=== PATIENT | male | born 1960 | race Caucasian/White ===

== ENCOUNTER 2016-11-05 17:27 | Inpatient (IN) | payer SELFPAY ==
[~2016-11-05] VITALS: Ht 177.8 cm; Wt 79.9 kg
[2016-11-05] VITALS (8 sets, daily range): BP systolic 137–146; BP diastolic 78–93; PULSE 56–72; RESP 16–20; TEMP 97.6–98.2; O2SAT 95–98
[~2016-11-05 17:27] MED LIST: ATOR20TA42 PO; BLOOD PRESSURE PILL; IBUP800T23 PO; OXYC-360 PO
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
[2016-11-05] MEDS ORDERED: ATEN25TA PO (17:55)
[2016-11-05 17:58] LABS: AUTOMATED NEUTROPHIL # 5.5 TH/MM3 (1.8-7.7); BASOPHIL % 0.4 % (0.0-2.0); EOSINOPHIL % 0.6 % (0.0-4.0); HEMATOCRIT 42.3 % (39.0-51.0); HEMO FLAGS DIFF FINAL; LYMPHOCYTE # 1.8 TH/MM3 (1.0-4.8); MEAN CELL VOLUME 90.4 FL (80.0-100.0); MEAN CORPUSCULAR HEMOGLOBIN 31.6 PG (27.0-34.0); MONO % 10.7 % (0.0-8.0); NEUT % 66.3 % (16.0-70.0); PLATELET COUNT 243 TH/MM3 (150-450); RED BLOOD COUNT 4.68 MIL/MM3 (4.50-5.90); WHITE BLOOD COUNT 8.2 TH/MM3 (4.0-11.0)
[2016-11-05] MEDS ORDERED: SODIUM CHLORIDE 0.9% FLUSH 5 ML FLUSH IVF PRN ×3 (18:00→19:30)
[2016-11-05 18:06] LABS: POTASSIUM 4.2 MEQ/L (3.5-5.1)
[2016-11-05 18:09] LABS: BICARBONATE 26.6 MEQ/L (21.0-32.0)
[2016-11-05 18:12] LABS: APTT (PATIENT) 24.3 SEC (24.3-30.1)
--- NOTE | 2016-11-05 18:58 | RADHPO ---
EXAM DATE/TIME: 11/05/2016 18:34 [facility] COMPARISON: No previous studies available for comparison. INDICATIONS : Left facial numbness and left upper and left lower extremity weakness for four days. RADIATION DOSE: 57.12 CTDIvol (mGy) MEDICAL HISTORY : Hypertension. SURGICAL HISTORY : None. ENCOUNTER: Initial ACUITY: 1 day PAIN SCALE: 0/10 LOCATION: Bilateral head TECHNIQUE: Multiple contiguous axial images were obtained of the head. Using automated exposure control and adj ustment of the mA and/or kV according to patient size, radiation dose was kept as low as reasonably a chievable to obtain optimal diagnostic quality images. FINDINGS: CEREBRUM: The ventricles are normal for age. No evidence of midline shift, mass lesion, hemorrhage or acute in farction. No extra-axial fluid collections are seen. POSTERIOR FOSSA: The cerebellum and brainstem are intact. The 4th ventricle is midline. The cerebellopontine angle i s unremarkable. EXTRACRANIAL: The visualized portion of the orbits is intact. SKULL: The calvaria is intact. No evidence of skull fracture. CONCLUSION: Negative noncontrast CT brain. Shaan Card MD on November 05, 2016 at 18:56 Board Certified Radiologist. This report was verified electronically.
--- NOTE | 2016-11-05 19:21 | PD ---
Physical Exam Date Seen by Provider: Nov 05, 2016 Time Seen by Provider: 19:18 Narrative accepted in transfer of care from Dr Benavides GENERAL: Well developed well-nourished male in no acute distress no respiratory distress SKIN: Warm and dry. HEAD: Atraumatic. Normocephalic. EYES: Pupils equal and round. No scleral icterus. No injection or drainage. ENT: No nasal bleeding or discharge. Mucous membranes pink and moist. NECK: Trachea midline. No JVD. CARDIOVASCULAR: Regular rate and rhythm. RESPIRATORY: No accessory muscle use. Clear to auscultation. Breath sounds equal bilaterally. GASTROINTESTINAL: Abdomen soft, non-tender, nondistended. Hepatic and splenic margins not palpable. MUSCULOSKELETAL: Extremities without clubbing, cyanosis, or edema. No obvious deformities. NEUROLOGICAL: Awake and alert. No obvious cranial nerve deficits. Motor grossly within normal limits. Five out of 5 muscle strength in the arms and legs. No pronator drift. Minimal limits ataxia affecting the left lower extremity. Sensory exam slightly decreased right UE/LE and reports minimally left face. Normal speech. PSYCHIATRIC: Appropriate mood and affect; insight and judgment normal. Data Data Last Documented VS Vital Signs Date Time Temp Pulse Resp B/P Pulse Ox O2 Delivery O2 Flow Rate FiO2 11/05/16 18:11 20 11/05/16 17:30 98.2 72 137/93 98 Orders Prothrombin Time / Inr (Pt) (11/05/16 17:47) Act Partial Throm Time (Ptt) (11/05/16 17:47) Complete Blood Count With Diff (11/05/16 17:47) Basic Metabolic Panel (Bmp) (11/05/16 17:47) Ct Brain W/O Iv Contrast(Rout) (11/05/16 17:47) Ecg Monitoring (11/05/16 17:47) Iv Access Insert/Monitor (11/05/16 17:47) Oximetry (11/05/16 17:47) Sodium Chloride 0.9% Flush (Ns Flush) (11/05/16 18:00) Labs Laboratory Tests Test 11/05/16 17:50 White Blood Count 8.2 TH/MM3 Red Blood Count 4.68 MIL/MM3 Hemoglobin 14.8 GM/DL Hematocrit 42.3 % Mean Corpuscular Volume 90.4 FL Mean Corpuscular Hemoglobin 31.6 PG Mean Corpuscular Hemoglobin 35.0 % Concent Red Cell Distribution Width 13.0 % Platelet Count 243 TH/MM3 Mean Platelet Volume 8.1 FL Neutrophils (%) (Auto) 66.3 % Lymphocytes (%) (Auto) 22.0 % Monocytes (%) (Auto) 10.7 % Eosinophils (%) (Auto) 0.6 % Basophils (%) (Auto) 0.4 % Neutrophils # (Auto) 5.5 TH/MM3 Lymphocytes # (Auto) 1.8 TH/MM3 Monocytes # (Auto) 0.9 TH/MM3 Eosinophils # (Auto) 0.0 TH/MM3 Basophils # (Auto) 0.0 TH/MM3 CBC Comment DIFF FINAL Differential Comment Prothrombin Time 11.0 SEC Prothromb Time International 1.0 RATIO Ratio Activated Partial 24.3 SEC Thromboplast Time Sodium Level 139 MEQ/L Potassium Level 4.2 MEQ/L Chloride Level 104 MEQ/L Carbon Dioxide Level 26.6 MEQ/L Anion Gap 8 MEQ/L Blood Urea Nitrogen 17 MG/DL Creatinine 1.20 MG/DL Estimat Glomerular Filtration 62 ML/MIN Rate Random Glucose 91 MG/DL Calcium Level 8.5 MG/DL [facility] Medical Record Reviewed: Yes Supervised Visit with SIXTO: No Interpretation(s) Last Impressions Head CT 11/05/16 3477 Signed Impressions: Service Date/Time: Saturday, November 05, 2016 18:34 - CONCLUSION: Negative noncontrast CT brain. Shaan Card MD Differential Diagnosis please refer to Dr Benavides's dictation Narrative Course accepted in transfer of care from Dr Benavides for follow up of pending CT brain w /o and patient disposition Venus Ho MD Nov 05, 2016 19:21
[2016-11-05] MEDS ORDERED: GLUCAGON 1 MG/ML VIAL IM/SQ PRN (19:30)
[2016-11-05] MEDS ORDERED: ENALAPRILAT 1.25 MG/ML VIAL IV PRN (19:30)
[2016-11-05] MEDS ORDERED: ASPIRIN 325 MG TAB PO ONE (19:30)
[2016-11-05] MEDS ORDERED: DEXTROSE 50% IN WATER 50 ML VIAL(D50) IV PUSH PRN (19:30)
[2016-11-05] MEDS ORDERED: ACETAMINOPHEN 325 MG TAB PO ONE (20:00)
[2016-11-05] MEDS: SODIUM CHLOR 0.9% 1000 ML INJ 1,000 ML IV SCH (20:09)
[2016-11-05] MEDS: SODIUM CHLORIDE 0.9% FLUSH 5 ML FLUSH IVF SCH (20:52)
[2016-11-05] MEDS: INSULIN ASPART SUPPLEMENTAL SCALE SQ SCH (20:52)
[2016-11-05] MEDS ORDERED: SODIUM CHLORIDE 0.9% FLUSH 5 ML FLUSH IVF SCH (21:00)
[2016-11-06] VITALS (9 sets, daily range): BP systolic 126–138; BP diastolic 80–86; PULSE 51–71; RESP 16–20; TEMP 96.5–98.1; O2SAT 95–98
[2016-11-06] MEDS: INSULIN ASPART SUPPLEMENTAL SCALE SQ SCH ×4 (06:29→20:33)
[2016-11-06] MEDS: SODIUM CHLORIDE 0.9% FLUSH 5 ML FLUSH IVF SCH ×2 (08:55→20:32)
[2016-11-06] MEDS: SODIUM CHLOR 0.9% 1000 ML INJ 1,000 ML IV SCH ×2 (08:55→23:48)
[2016-11-06] MEDS ORDERED: ASPIRIN 81 MG CHEW TAB CHEW SCH (09:00)
[2016-11-06] MEDS ORDERED: ASPIRIN 325 MG TAB PO SCH (09:00)
[2016-11-06 10:05] LABS: LDL CHOLESTEROL 173 MG/DL (0-99)
[2016-11-06] MEDS ORDERED: ACETAMINOPHEN 650 MG SUPP RECTAL PRN (11:00)
[2016-11-06] MEDS ORDERED: ACETAMINOPHEN 80 MG CHEWABLE TAB CHEW ONE (11:00)
--- NOTE | 2016-11-06 11:19 | RADHPO ---
EXAM DATE/TIME: 11/06/2016 10:39 [facility] COMPARISON: CT BRAIN W/O CONTRAST, November 05, 2016, 18:34. INDICATIONS : Dizziness. Ataxia with falling. MEDICAL HISTORY : Hypertension. SURGICAL HISTORY : Inguinal hernia repair. [facility] ENCOUNTER: Initial ACUITY: 1 day PAIN SCORE: 0/10 LOCATION: cranial TECHNIQUE: Multiplanar, multisequence MRI of the brain was performed without contrast. FINDINGS: CEREBRUM: The ventricles are normal for age. No evidence of midline shift, mass lesion, hemorrhage or acute in farction. No extraaxial fluid collections are seen. The pituitary gland and suprasellar cistern are normal in configuration. WHITE MATTER: No significant signal abnormalities are seen in the white matter. POSTERIOR FOSSA: The cerebellum and brainstem are intact. There is a questionable tiny area of increased signal along the left brain stem seen on the very first image of the diffusion weighted sequence and FLAIR sequenc e. This could be artifact.. The 4th ventricle is midline. The cerebellopontine angle is unremarkable. The cerebellar tonsils are normal in position. DIFFUSION IMAGING: Questionable tiny area of increased signal along the left brain stem seen on the first image. This co uld be an artifact. Otherwise, the diffusion images are unremarkable.EXTRACRANIAL: The visualized portions of the orbits are unremarkable. Chronic bilateral maxillary sinus disease. CONCLUSION: 1. Questionable tiny area of increased signal along the left lateral brain stem on the very first juan ge of the diffusion and flair weighted sequences. This is most likely an artifact. However, I would c orrelate with patient's clinical and physical exam if this finding suggest a tiny brainstem infarct. 2. Chronic bilateral maxillary sinus disease. 3. Otherwise, unremarkable examination. Paco Lewis MD on November 06, 2016 at 11:11 Board Certified Radiologist. This report was verified electronically.
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
[2016-11-06 11:56] LABS: HEMOGLOBIN A1a 0.8 %; HEMOGLOBIN A1b 1.5 %; HEMOGLOBIN Ao 86.5 %; HEMOGLOBIN F 0.3 %; HEMOGLOBIN LA1C 1.8 %; HEMOGLOBIN P3 3.5 %
--- NOTE | 2016-11-06 12:24 | EKG ---
Date Performed: 11/05/2016 Time Performed: 17:37:34 PTAGE: 56 years EKG: Sinus rhythm . Poor R wave progression - probable normal variant Borderline ECG NO PREVIOUS TRACING DOCTOR: Noel Gu Interpretating Date/Time 11/06/2016 12:23:56
[2016-11-06] MEDS ORDERED: ACETAMINOPHEN 325 MG TAB PO PRN (14:00)
[2016-11-06] MEDS: ACETAMINOPHEN/HYDROcodone 325 MG/7.5 MG TAB PO PRN ×2 (14:26→20:32)
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
--- NOTE | 2016-11-06 17:54 | MB ---
cc: MARIO ALBERTO WRIGHT M.D. DATE OF CONSULTATION 11/06/2016 HISTORY Micheal Godwin is a 56-year-old seen in neurological consultation. About a week to 10 days ago he felt that his head and was not quite right. He is very vague about this but some four days ago he had some head pain on the left side and next morning he woke up with difficulty walking and describes a left-sided numbness, weakness, he could not walk. He stayed in bed most of the time but decided to come in yesterday. His symptoms persist. He has been having hiccups as well. History of hypertension, apparent hyperlipidemia. He takes atenolol. No history of stroke, seizures, TIA. NEUROLOGICAL EXAMINATION Exam shows an alert pleasant man. He is oriented. Mentation is normal. Ocular movements are full as well as visual flores. No facial weakness. Tongue and palate moves well. Speech was normal. There is some questionable difficulty with left hand coordination. I did not ambulate him but he describes an inability to ambulate without risk. His reflexes were 1+, plantar responses flexor. Position sense preserved. IMAGING MRI brain was reviewed. There are some areas of possible subacute stroke, left lower brain stem. MRA head normal. LABORATORY DATA Chemistry normal. LDL is 173. CBC is normal. 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 The MRI is a difficult call but his symptomatology is in line with this. EKG is sinus rhythm. He was started on aspirin and statin. He was not taking any of these meds in the past except for atenolol. I will add MRA neck. The goal will be to reach an LDL on the patient below 60. If MRA neck is showing no significant abnormalities, then continue for to rehab and outpatient office followup in a couple of weeks. Thank you for asking us to assist in his care. MD RADHA Vargas/EDER /4:54 PM /5:43 PM
--- NOTE | 2016-11-06 19:49 | RADHPO ---
EXAM DATE/TIME: 11/06/2016 19:19 [facility] COMPARISON: US CAROTID ARTERIES, November 06, 2016, 16:42. INDICATIONS : Dizziness. CONTRAST: 20 cc Omniscan (gadodiamide) IV MEDICAL HISTORY : Hypertension. SURGICAL HISTORY : Inguinal hernia repair. ENCOUNTER: Initial ACUITY: 1 day PAIN SCORE: 0/10 LOCATION: cranial Percent stenosis is calculated using the diameter of the stenotic region over the diameter of the nor mal distal internal carotid artery. TECHNIQUE: Bolus infused MRA of the extracranial circulation was performed using a neurovascular coil. Post pro cessing was performed including rotationg subvolume maximum intensity projections of each carotid art alfredo, rotating full volume maximum intensity projections of both carotid arteries, sagittal and laureano l sliding thin slab reformations of each carotid artery, and left oblique sliding thin slab reformati on through the aortic arch to include the origin of the arch branch vessels. FINDINGS: AORTIC ARCH: There is a three vessel origin of the great vessels from the aorta. No evidence of ostial narrowing. RIGHT CAROTID: The common carotid artery is intact. The carotid bulb has a normal configuration without ulceration or narrowing. The internal carotid artery lumen is smooth without stenosis. The external carotid ar alon is intact. LEFT CAROTID: The common carotid artery is intact. The carotid bulb has a normal configuration without ulceration or narrowing. The internal carotid artery lumen is smooth without stenosis. The external carotid ar alon is intact. VERTEBRALS: The vertebral arteries have a symmetric diameter. There are bilateral undulating impressions upon th e mid vertebral arteries bilaterally, probably due to uncovertebral joint hypertrophy in the cervical spine.. CONCLUSION: Negative MRA of the carotids. Shaan Card MD on November 06, 2016 at 19:45 Board Certified Radiologist. This report was verified electronically.
[2016-11-06] MEDS ORDERED: GADODIAMIDE PF 287 MG/ML 20 ML VIAL (for RAD MRI) IV ONE (20:02)
[2016-11-07] VITALS (8 sets, daily range): BP systolic 131–157; BP diastolic 83–98; PULSE 51–61; RESP 16–18; TEMP 95.7–98.1; O2SAT 94–100
[2016-11-07] MEDS: ACETAMINOPHEN/HYDROcodone 325 MG/7.5 MG TAB PO PRN ×4 (00:56→23:56)
[2016-11-07] MEDS: INSULIN ASPART SUPPLEMENTAL SCALE SQ SCH ×2 (06:03→11:00)
[2016-11-07] MEDS: SODIUM CHLORIDE 0.9% FLUSH 5 ML FLUSH IVF SCH ×2 (09:00→20:08)
[2016-11-07] MEDS: PRAVASTATIN SOD 20 MG TAB PO SCH (10:11)
[2016-11-07] MEDS: ASPIRIN EC 325 MG TABEC PO SCH (10:11)
--- NOTE | 2016-11-07 11:51 | HHI.PR ---
Subjective Remarks Patient seen today in follow-up for stroke. Patient still quite unsteady. Discharge plans discussed with patient and with case management. Patient will benefit from rehabilitation placement Objective Vitals Vital Signs Date Time Temp Pulse Resp B/P Pulse Ox O2 Delivery O2 Flow Rate FiO2 11/07/16 08:57 97.9 61 17 140/85 97 11/07/16 07:03 15 11/07/16 04:00 96.6 51 18 157/94 94 11/07/16 00:00 97.0 54 18 147/86 99 11/06/16 20:05 62 11/06/16 20:00 97.7 64 18 127/86 95 11/06/16 16:00 98.1 71 20 138/84 98 11/06/16 12:10 54 11/06/16 12:00 98.0 52 20 137/86 98 I/O 11/06/16 11/06/16 11/06/16 11/07/16 11/07/16 11/07/16 07:00 15:00 23:00 07:00 15:00 23:00 Intake Total 560 ml 480 ml 1397 ml 774 ml Output Total 350 ml 840 ml Balance 210 ml 480 ml 1397 ml -66 ml Intake Oral 480 ml 240 ml IV Total 560 ml 1397 ml 534 ml Output Urine Total 350 ml 840 ml # Voids 1 # Bowel Movements 0 Result Diagram: 11/05/16 1750 11/05/16 175 Objective Remarks GENERAL: This is a well-nourished, well-developed patient, in no apparent distress. CARDIOVASCULAR: Regular rate and rhythm without murmurs, gallops, or rubs. RESPIRATORY: Clear to auscultation. Breath sounds equal bilaterally. No wheezes , rales, or rhonchi. GASTROINTESTINAL: Abdomen soft, non-tender, nondistended. Normal active bowel sounds MUSCULOSKELETAL: Extremities without clubbing, cyanosis, or edema. NEURO: Alert & Oriented x4 to person, place, time, situation. Moves all ext x4 but has some left-sided preference and ataxia A/P Problem List: (1) CVA (cerebral vascular accident) ICD Code: I63.9 Status: Acute Plan: Images show no arterial blockages Follow-up echo Continue statin and continue aspirin rehabilitation efforts Will continue risk modification Neuro consult appreciated d/c Accucheck, IVF Assessment and Plan TEDs SCDs Discharge Planning Patient will benefit from rehabilitation placement We'll evaluate [facility] bed at inpatient rehabilitation Yana Brandon MD Nov 07, 2016 11:51
--- NOTE | 2016-11-07 14:51 | EC ---
Study Study Date:11/07/2016 STUDY CONCLUSIONS SUMMARY LEFT VENTRICLE: The cavity size was normal. Wall thickness was normal. Systolic function was normal. The estimated ejection fraction was in the range of 55% to 60%. Wall motion was normal; there were no regional wall motion abnormalities. If LV function is below 40, please consider prescribing an ACEI or ARB or document rationale for non-use. PROCEDURE DATA STUDY STATUS: Elective. Procedure: Transthoracic echocardiography. Image quality was good. Scanning was performed from the parasternal, apical, and subcostal acoustic windows. Study completion: The patient tolerated the procedure well. Transthoracic echocardiography. M-mode, complete 2D, complete spectral Doppler, and color Doppler. Patient status: Inpatient. CARDIAC ANATOMY LEFT VENTRICLE: The cavity size was normal. Wall thickness was normal. Systolic function was normal. The estimated ejection fraction was in the range of 55% to 60%. Wall motion was normal; there were no regional wall motion abnormalities. AORTIC VALVE: Trileaflet; normal thickness leaflets. Doppler: Transvalvular velocity was within the normal range. There was no stenosis. No regurgitation. AORTA: Aortic root: The aortic root was normal in size. MITRAL VALVE: Structurally normal valve. Doppler: Transvalvular velocity was within the normal range. There was no evidence for stenosis. Trace regurgitation. LEFT ATRIUM: The atrium was normal in size. RIGHT VENTRICLE: The cavity size was normal. Wall thickness was normal. PULMONIC VALVE: Doppler: Transvalvular velocity was within the normal range. There was no evidence for stenosis. No regurgitation. TRICUSPID VALVE: Structurally normal valve. Doppler: Transvalvular velocity was within the normal range. Trace regurgitation. PULMONARY ARTERY: The main pulmonary artery was normal-sized. Systolic pressure was within the normal range. RIGHT ATRIUM: The atrium was normal in size. PERICARDIUM: There was no pericardial effusion. SYSTEMIC VEINS: Inferior vena cava: The vessel was normal in size. BASIC MEASUREMENTS ADULT NORMAL Left ventricle LV internal dimension, ED, chordal level, *34.9 mm 43-52 PLAX LV internal dimension, ES, chordal level, 25.3 mm 23-38 PLAX Fractional shortening, chordal level, PLAX *28 % >29 LV posterior wall thickness, ED 10.7 mm IVS/LVPW ratio, ED 1.19 <1.3 Ventricular septum Septal thickness, ED 12.7 mm Aortic valve Leaflet separation 19 mm 15-26 Right ventricle RV internal dimension, ED, PLAX 23.4 mm 19-38 BASIC MEASUREMENTS ADULT NORMAL Aortic valve Leaflet separation 19 mm 15-26 Aorta Root diameter, ED 28 mm 20-37 Left atrium Anterior-posterior dimension, ES 34 mm 19-40 LA/aortic root ratio 1.21 LEGEND: Mean values are shown as u=mean value. Asterisk (*) zarco values outside specified normal range. Prepared and signed by Fred Monte [id number]
[2016-11-07] MEDS: chlorproMAZINE HCL 25 MG TAB PO PRN ×2 (18:26→23:56)
[2016-11-08 08:00] VITALS: BP 150/81; PULSE 58; RESP 18; TEMP 97.2; O2SAT 96
[2016-11-08] MEDS: ASPIRIN EC 325 MG TABEC PO SCH (08:23)
[2016-11-08] MEDS: PRAVASTATIN SOD 20 MG TAB PO SCH (08:23)
[2016-11-08] MEDS: SODIUM CHLORIDE 0.9% FLUSH 5 ML FLUSH IVF SCH ×2 (08:24→20:54)
[2016-11-08] MEDS ORDERED: BISACODYL EC 5 MG TABEC PO ONE (10:45)
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
[2016-11-08 12:00] VITALS: BP 137/86; PULSE 59; RESP 18; TEMP 97; O2SAT 99
[2016-11-08 12:00] LABS: CHLORIDE 104 MEQ/L (98-107); POTASSIUM 3.7 MEQ/L (3.5-5.1); SODIUM (NA) 141 MEQ/L (136-145)
[2016-11-08 12:05] LABS: AMYLASE 48 U/L (25-115); ANION GAP 8 MEQ/L (5-15); BICARBONATE 29.4 MEQ/L (21.0-32.0); BLOOD UREA NITROGEN 15 MG/DL (7-18)
[2016-11-08 12:07] LABS: ALT (GPT) 38 U/L (12-78); AST (GOT) 21 U/L (15-37); GLOMERULAR FILTRATION RATE 90 ML/MIN (>89)
[2016-11-08 12:09] LABS: TOTAL BILIRUBIN ADULT 1.2 MG/DL (0.2-1.0)
[2016-11-08 12:10] LABS: ALKALINE PHOSPHATASE 51 U/L (45-117)
--- NOTE | 2016-11-08 13:20 | RADHPO ---
EXAM DATE/TIME: 11/08/2016 13:02 [facility] COMPARISON: No previous studies available for comparison. INDICATIONS : Nausea. MEDICAL HISTORY : Hypertension. Stroke. SURGICAL HISTORY : Inguinal hernia repair. ENCOUNTER: Subsequent ACUITY: 4 - 6 days PAIN SCORE: 2/10 LOCATION: Abdomen, upper quadrant. FINDINGS: Supine view of the abdomen was performed. The abdominal bowel gas pattern is normal. No definite ca lcifications overlying the kidneys.. The osseous structures are unremarkable. CONCLUSION: Benign abdomen. Paco Lewis MD on November 08, 2016 at 13:18 Board Certified Radiologist. This report was verified electronically.
[2016-11-08] MEDS: chlorproMAZINE HCL 25 MG TAB PO PRN (15:29)
[2016-11-08] MEDS: ACETAMINOPHEN/HYDROcodone 325 MG/7.5 MG TAB PO PRN (15:29)
[2016-11-08] MEDS: ATENOLOL 25 MG TAB PO SCH (15:30)
[2016-11-08] MEDS: POLYETHYLENE GLYCOL 17 GM PKG PO SCH (15:30)
[2016-11-08] MEDS: ENOXAPARIN SODIUM 40 MG/0.4 ML SYRINGE SQ SCH (15:32)
[2016-11-08 16:00] VITALS: BP 138/89; PULSE 71; RESP 18; TEMP 97.8; O2SAT 98
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
[2016-11-08 20:00] VITALS: BP 113/76; PULSE 67; RESP 18; TEMP 96.6; O2SAT 98
[2016-11-09] VITALS (7 sets, daily range): BP systolic 106–146; BP diastolic 70–83; PULSE 54–85; RESP 15–20; TEMP 96.1–97.9; O2SAT 95–98
[2016-11-09] MEDS ORDERED: PROPOFOL 200 MG/20 ML AMP IV ONE (07:43)
[2016-11-09] MEDS: PRAVASTATIN SOD 20 MG TAB PO SCH (08:51)
[2016-11-09] MEDS: chlorproMAZINE HCL 25 MG TAB PO PRN (08:51)
[2016-11-09] MEDS: ASPIRIN EC 325 MG TABEC PO SCH (08:51)
[2016-11-09] MEDS: ATENOLOL 25 MG TAB PO SCH (08:52)
[2016-11-09] MEDS: PANTOPRAZOLE SOD 40 MG DELAYED RELEASE TAB PO SCH (08:52)
[2016-11-09] MEDS: POLYETHYLENE GLYCOL 17 GM PKG PO SCH (08:56)
[2016-11-09] MEDS: SODIUM CHLORIDE 0.9% FLUSH 5 ML FLUSH IVF SCH ×2 (09:00→21:00)
[2016-11-09] MEDS: ENOXAPARIN SODIUM 40 MG/0.4 ML SYRINGE SQ SCH (09:08)
--- NOTE | 2016-11-09 16:01 | HHI.GIFU ---
Subjective Remarks feels ok, still have nausea, and not able to belch Objective Vitals I&O Vital Signs Date Time Temp Pulse Resp B/P Pulse Ox O2 Delivery O2 Flow Rate FiO2 11/09/16 12:00 96.5 61 18 106/74 96 11/09/16 08:25 113/72 11/09/16 08:15 60 16 117/72 96 11/09/16 08:05 109/70 11/09/16 06:55 97.9 60 15 125/75 98 11/09/16 06:10 96.8 60 16 125/75 98 11/09/16 00:00 97.0 61 20 120/83 98 11/08/16 20:00 96.6 67 18 113/76 98 11/08/16 16:00 97.8 71 18 138/89 98 I/O 11/08/16 11/08/16 11/08/16 11/09/16 11/09/16 11/09/16 07:00 15:00 23:00 07:00 15:00 23:00 Intake Total 480 ml 990 ml 480 ml 0 ml 300 ml Output Total 200 ml 850 ml Balance 280 ml 140 ml 480 ml 0 ml 300 ml Intake Oral 480 ml 990 ml 480 ml IV Total 0 ml 0 ml Other 300 ml Output Urine Total 200 ml 850 ml # Voids 2 1 # Bowel Movements 0 0 2 0 Physical Exam HEENT: Pupils round and reactive to light; normocephalic; atraumatic; no jaundice. Throat is clear. NECK: Neck is supple, no JVD, no lymphadenopathy. CHEST: Chest is clear to auscultation and percussion. CARDIAC: Regular rate and rhythm with no murmur gallop or rubs. ABDOMEN: Soft, nondistended, nontender; no hepatosplenomegaly; bowel sounds are present in all four quadrants. EXTREMITIES: No clubbing, cyanosis, or edema. SKIN: Normal; no rash; no jaundice. STEMMING MACHINE OPERATOR: No focal deficits; alert and oriented times three. Assessment and Plan Assessment: (1) Hiccups Plan: Has persistent hiccups since 11/05/16 No relief with Thorazine (2) Nausea Plan: continue anti-emetics PRN (3) CVA (cerebral vascular accident) Plan: Followed by neurology and hospitalist Plan This is a 56 year old male admitted with an acute CVA has persistent hiccups and nausea, EGD showed anatomy c/w fundoplication, s/p dilation size 18 mm and Bx from antrum to R/O H pylori, otherwise normal exam Plan -ENOC -Supportive care Lev Sheehan MD Nov 09, 2016 16:01
--- NOTE | 2016-11-09 16:26 | HHI.PR ---
Subjective Remarks Patient still has 6 cups but he feels that his strength is improving. Patient was seen ambulating independently around his room with a walker. Objective Vitals Vital Signs Date Time Temp Pulse Resp B/P Pulse Ox O2 Delivery O2 Flow Rate FiO2 11/09/16 16:00 97.7 85 17 110/70 95 11/09/16 12:00 96.5 61 18 106/74 96 11/09/16 08:25 113/72 11/09/16 08:15 60 16 117/72 96 11/09/16 08:05 109/70 11/09/16 06:55 97.9 60 15 125/75 98 11/09/16 06:10 96.8 60 16 125/75 98 11/09/16 00:00 97.0 61 20 120/83 98 11/08/16 20:00 96.6 67 18 113/76 98 I/O 11/08/16 11/08/16 11/08/16 11/09/16 11/09/16 11/09/16 06:59 14:59 22:59 06:59 14:59 22:59 Intake Total 480 ml 990 ml 480 ml 0 ml 300 ml Output Total 200 ml 850 ml Balance 280 ml 140 ml 480 ml 0 ml 300 ml Intake Oral 480 ml 990 ml 480 ml IV Total 0 ml 0 ml Other 300 ml Output Urine Total 200 ml 850 ml # Voids 2 1 # Bowel Movements 0 0 2 0 Result Diagram: 11/05/16 1750 11/08/16 1140 Objective Remarks GENERAL: Well-nourished, well-developed patient. SKIN: Warm and dry. HEAD: Normocephalic. EYES: No scleral icterus. No injection or drainage. NECK: Supple, trachea midline. No JVD or lymphadenopathy. CARDIOVASCULAR: Regular rate and rhythm without murmurs, gallops, or rubs. RESPIRATORY: Breath sounds equal bilaterally. No accessory muscle use. GASTROINTESTINAL: Abdomen soft, non-tender, nondistended. EXTREMITIES: No cyanosis, or edema. NEUROLOGICAL: Awake, alert, and oriented x 3. Non-focal. Normal speech. Gait steady with walker. A/P Problem List: (1) CVA (cerebral vascular accident) ICD Code: I63.9 Status: Acute (2) Hiccups ICD Code: R06.6 Status: Acute (3) Nausea ICD Code: R11.0 Status: Acute (4) HTN (hypertension) ICD Code: I10 Status: Acute Assessment and Plan (1) CVA (cerebral vascular accident)- Left lateral Brainstem; strong family history with personal risk factors of hyperlipidemia and HTN Echo wnl, neck MRA OK Continue statin and continue aspirin Neurologically much improved and ambulating independently with his walker Stable for outpatient PT at this time Neuro consult appreciated (2) Hiccups Plan: Persistent since 11/05, no improvement with Thorazine may be due to CVA; versus gastritis Status post EGD today - showing gastritis continue Protonix appreciate GI eval (3) Nausea -Improved. (4) HTN (hypertension) -Continue atenolol atenolol Discharge Planning Plan for discharge home tomorrow with walker and outpatient physical therapy/OT/ Edda Casillas MD Nov 09, 2016 16:26
[2016-11-09] MEDS ORDERED: WALKER GLIDE WH1 MI1 (16:28)
[2016-11-09] MEDS ORDERED: Aspirin Ec PO (16:31)
[2016-11-09] MEDS ORDERED: PANT40TA3 PO (16:31)
[2016-11-09] MEDS ORDERED: PRAV20TA PO (16:31)
[2016-11-09] MEDS ORDERED: CODEINE SULFATE 15 MG TAB PO ONE (23:45)
[2016-11-09] MEDS ORDERED: CODEINE SULFATE 30 MG TAB PO ONE (23:45)
[2016-11-10] VITALS: BP 118/88; PULSE 64; RESP 18; TEMP 97.1; O2SAT 98
[2016-11-10 08:00] VITALS: BP 120/78; PULSE 63; RESP 20; TEMP 98.4; O2SAT 98
[2016-11-10] MEDS: ENOXAPARIN SODIUM 40 MG/0.4 ML SYRINGE SQ SCH (08:37)
[2016-11-10] MEDS: POLYETHYLENE GLYCOL 17 GM PKG PO SCH (08:38)
[2016-11-10] MEDS: ASPIRIN EC 325 MG TABEC PO SCH (08:38)
[2016-11-10] MEDS: PRAVASTATIN SOD 20 MG TAB PO SCH (08:38)
[2016-11-10] MEDS: PANTOPRAZOLE SOD 40 MG DELAYED RELEASE TAB PO SCH (08:38)
[2016-11-10] MEDS: SODIUM CHLORIDE 0.9% FLUSH 5 ML FLUSH IVF SCH (08:38)
[2016-11-10] MEDS: ATENOLOL 25 MG TAB PO SCH (08:38)
--- NOTE | 2016-11-10 09:48 | HHI.DS ---
Discharge Summary Admission Date Nov 05, 2016 at 19:26 Discharge Date: Nov 10, 2016 Admitting Diagnosis CVA (1) CVA (cerebral vascular accident) ICD Code: I63.9 (2) Hiccups ICD Code: R06.6 (3) Nausea ICD Code: R11.0 (4) HTN (hypertension) ICD Code: I10 Procedures EGD Brief History - From Admission Patient is a 56-year-old gentleman who comes emergency room 4 days after acute onset of left arm and left leg weakness and numbness left side of his face. Patient has difficulty ambulating and says that he is leaning to the left. He tends to be quite loquacious and has trouble processing some information although follows commands without difficulty. Patient has any trauma or fall. He's never had a stroke and is only medical history of hypertension. He admits his family history includes stroke. On arrival patient's blood pressure was within normal limits. He did have images done of his head which show questionable tiny left lateral brainstem signal concerning for possible stroke versus artifact. The patient at this time has been admitted for evaluation treatment of this neurological issue. CBC/BMP: 11/08/16 1140 Significant Findings Laboratory Tests Test 11/08/16 11:40 Total Bilirubin 1.2 MG/DL (0.2-1.0) Imaging Last Impressions Abdomen X-Ray 11/08/16 0000 Signed Impressions: Service Date/Time: Tuesday, November 08, 2016 13:02 - CONCLUSION: Benign abdomen. Paco Lewis MD Neck Magnetic Resonance Angiography 11/06/16 0000 Signed Impressions: Service Date/Time: Sunday, November 06, 2016 19:19 - CONCLUSION: Negative MRA of the carotids. Shaan Card MD Head Magnetic Resonance Angiography 11/06/16 0000 Signed Impressions: Service Date/Time: Sunday, November 06, 2016 10:39 - CONCLUSION: Normal examination for a patient of this age. Paco Lewis MD Carotid Artery Ultrasound 11/06/16 0000 Signed Impressions: Service Date/Time: Sunday, November 06, 2016 16:42 - CONCLUSION: Normal hemodynamic profile both carotids. Shaan Card MD Brain MRI 11/06/16 0000 Signed Impressions: Service Date/Time: Sunday, November 06, 2016 10:39 - CONCLUSION: 1. Questionable tiny area of increased signal along the left lateral brain stem on the very first image of the diffusion and flair weighted sequences. This is most likely an artifact. However, I would correlate with patient's clinical and physical exam if this finding suggest a tiny brainstem infarct. 2. Chronic bilateral maxillary sinus disease. 3. Otherwise, unremarkable examination. Paco Lewis MD Head CT 11/05/16 1747 Signed Impressions: Service Date/Time: Saturday, November 05, 2016 18:34 - CONCLUSION: Negative noncontrast CT brain. Shaan Card MD PE at Discharge GENERAL: Well-nourished, well-developed patient. SKIN: Warm and dry. HEAD: Normocephalic. EYES: No scleral icterus. No injection or drainage. NECK: Supple, trachea midline. No JVD or lymphadenopathy. CARDIOVASCULAR: Regular rate and rhythm without murmurs, gallops, or rubs. RESPIRATORY: Breath sounds equal bilaterally. No accessory muscle use. GASTROINTESTINAL: Abdomen soft, non-tender, nondistended. EXTREMITIES: No cyanosis, or edema. NEUROLOGICAL: Awake, alert, and oriented x 3. Non-focal. Normal speech. Gait steady with walker. Hospital Course The patient was admitted to the hospital. Imaging and physical presentation was consistent with a left lateral brain stem stroke. Neurology did evaluate the patient. Neck MRA was negative for carotid artery stenosis. The patient had intractable hiccups, likely from the stroke. GI was consulted. He underwent EGD which showed mild gastritis. The patient had gait ataxia but this improved significantly and the patient is now ambulating independently with a walker. The patient will be discharged home today, a blue card was provided to him so he can follow-up in the community clinic. He was provided information on outpatient physical therapy services. Pt Condition on Discharge: Stable Discharge Disposition: Discharge Home Discharge Time: > 30 minutes Discharge Instructions DIET: Follow Instructions for: Heart Healthy Diet Activities you can perform: Regular-No Restrictions New Medications: Walker [place] Wheels/5 Adj (Walker [place] Wheels/5 Adj) 1 Mis Mis 1 EA .ROUTE DIRECTED #1 EA Pantoprazole (Pantoprazole) 40 Mg Tab 40 MG PO DAILY gastritis #30 TAB Pravastatin (Pravachol) 20 Mg Tab 20 MG PO DAILY Cholesterol Management #30 TAB ([Aspirin Ec]) 325 MG TABEC 325 MG PO DAILY #30 TAB.EC Continued Medications: Atenolol (Atenolol) 25 Mg Tab 25 MG PO DAILY Blood Pressure Management #30 TAB Edda Nicole MD Nov 10, 2016 09:48
[2016-11-10 12:00] VITALS: BP 115/80; PULSE 55; RESP 20; TEMP 97.9; O2SAT 98
== END 2016-11-10 12:58 | disposition home or self-care (01) | DRG 65 ==
LOC: PHED 17:27 → PHEDA 19:26 → PH3B 21:10
PROVIDERS: ADMIT Family Medicine; ATTEND Family Medicine
PROC: 0DB58ZX Excision of Esophagus, Via Natural or Artificial Opening Endoscopic, Diagnostic (ICD-10-PCS; 2016-11-09)
PROC: 0D758ZZ Dilation of Esophagus, Via Natural or Artificial Opening Endoscopic (ICD-10-PCS; principal; 2016-11-09 07:35)
DX: I63.9 Cerebral infarction, unspecified (principal); G81.94 Hemiplegia, unspecified affecting left nondominant side; I10 Essential (primary) hypertension; E78.00 Pure hypercholesterolemia, unspecified; R26.2 Difficulty in walking, not elsewhere classified; Z82.3 Family history of stroke; E78.5 Hyperlipidemia, unspecified; R06.6 Hiccough; K59.00 Constipation, unspecified; K29.70 Gastritis, unspecified, without bleeding; K22.2 Esophageal obstruction
CPT/HCPCS: 70450; 70544; 70548; 70551; 74000; 80048; 80053; 80061; 82150; 82948; 83036; 83690; 85025; 85610; 85730; 88305; 93005; 93306; 93880; A9579; C1769; J1650; J7030

== ENCOUNTER 2017-06-19 17:48 | Emergency (ER) | payer SELFPAY ==
[~2017-06-19] VITALS: Ht 177.8 cm; Wt 84.0 kg
[~2017-06-19 17:48] MED LIST changes: +ATEN25TA PO; -ATOR20TA42 PO; +Aspirin Ec PO; -BLOOD PRESSURE PILL; -IBUP800T23 PO; -OXYC-360 PO; +PANT40TA3 PO; +PRAV20TA PO; +WALKER GLIDE WH1 MI1
[2017-06-19 17:59] VITALS: BP 189/83; PULSE 85; RESP 15; TEMP 98.2; O2SAT 99
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
[2017-06-19] MEDS ORDERED: KETOROLAC TROMETHAMINE 60 MG/2 ML (IM) VIAL IM ONE (18:30)
[2017-06-19] MEDS ORDERED: IBUP-232 PO ×2 (18:32→19:31)
--- NOTE | 2017-06-19 19:01 | RADRPT ---
EXAM DATE/TIME: 06/19/2017 18:49 [facility] COMPARISON: No previous studies available for comparison. INDICATIONS : Right leg pain. Patient heard a pop while moving brush. MEDICAL HISTORY : Hypertension. Stroke. SURGICAL HISTORY : Inguinal hernia repair. ENCOUNTER: Initial ACUITY: 1 day PAIN SCORE: 10/10 LOCATION: Right leg. FINDINGS: Two view examination of the right tibia demonstrates no evidence of fracture or dislocation. Bony mi neralization is normal. The soft tissue structures are intact. CONCLUSION: No acute fracture. Wan Amador MD on June 19, 2017 at 18:55 Board Certified Radiologist. This report was verified electronically.
[2017-06-19] MEDS ORDERED: HYDR-3533 PO (19:31)
== END 2017-06-19 20:04 | disposition home or self-care (01) ==
LOC: EDTENT 17:48
DX: S86.111A Strain of other muscle(s) and tendon(s) of posterior muscle group at lower leg level, right leg, initial encounter (principal); I10 Essential (primary) hypertension; E78.00 Pure hypercholesterolemia, unspecified; Z79.82 Long term (current) use of aspirin; Z86.79 Personal history of other diseases of the circulatory system; Z86.69 Personal history of other diseases of the nervous system and sense organs; X58.XXXA Exposure to other specified factors, initial encounter; Y92.096 Garden or yard of other non-institutional residence as the place of occurrence of the external cause
CPT/HCPCS: 73590; 96372; 99284; J1885